=== PATIENT | female | born 1965 | race Caucasian/White ===

== ENCOUNTER 2018-03-04 02:46 | Emergency (ER) | payer OTHER ==
[~2018-03-04] VITALS: Ht 162.6 cm; Wt 105.7 kg
[~2018-03-04 02:46] MED LIST: DEPO-MEDRO40 MG/1 ML IJ; DICLOFENAC POTA50 MG PO; EC-NAPROSYN500 MG PO; FLECTOR1 EACH TD; LIDOCAINE IJ; TRAMADOL HCL-AP1 TAB PO; VOLTAREN-XR100 MG PO
[2018-03-04] MEDS ORDERED: BACTRIM DS TAB1 EACH PO (05:23)
[2018-03-04] MEDS ORDERED: PYRIDIUM DS200 MG PO (05:40)
== END 2018-03-04 06:15 | disposition home or self-care (01) ==
LOC: ER 02:46
DX: N30.80 Other cystitis without hematuria (principal)

== ENCOUNTER 2018-10-10 11:07 | Outpatient (CLI) | payer OTHER ==
[~2018-10-10 11:07] MED LIST changes: +BACTRIM DS TAB1 EACH PO; +PYRIDIUM DS200 MG PO; +XYLOCAINE IJ
== END 2018-10-10 11:11 | disposition home or self-care (01) ==
LOC: MAMO-SONO 11:07
DX: N60.29 Fibroadenosis of unspecified breast (principal); Z12.31 Encounter for screening mammogram for malignant neoplasm of breast

== ENCOUNTER 2019-02-23 14:20 | Outpatient (CLI) | payer OTHER | END 2019-02-23 16:12 | disposition home or self-care (01) | LOC: SONOGRAMA 14:20 | DX: M12.88 Other specific arthropathies, not elsewhere classified, other specified site (principal) ==

== ENCOUNTER 2019-07-04 08:18 | Emergency (ER) | payer OTHER ==
[~2019-07-04] VITALS: Ht 167.6 cm; Wt 101.6 kg
== END 2019-07-04 17:27 | disposition home or self-care (01) ==
LOC: ER 08:18
DX: J45.998 Other asthma (principal); B96.0 Mycoplasma pneumoniae [M. pneumoniae] as the cause of diseases classified elsewhere

== ENCOUNTER 2019-07-18 07:26 | Outpatient (CLI) | payer OTHER | END 2019-07-18 08:43 | disposition home or self-care (01) | LOC: RAD 07:26 | DX: M25.562 Pain in left knee (principal); M25.561 Pain in right knee ==

== ENCOUNTER 2019-11-13 11:50 | Outpatient (CLI) | payer OTHER | END 2019-11-13 11:54 | disposition home or self-care (01) | LOC: MAMO-SONO 11:50 | PROVIDERS: ATTEND Internal Medicine Cardiovascular Disease | DX: Z12.31 Encounter for screening mammogram for malignant neoplasm of breast (principal); Z87.898 Personal history of other specified conditions; N63.11 Unspecified lump in the right breast, upper outer quadrant ==

== ENCOUNTER 2021-04-08 08:47 | Outpatient (CLI) | payer OTHER | END 2021-04-08 08:51 | disposition home or self-care (01) | LOC: TOM 08:47 | PROVIDERS: ATTEND Internal Medicine Gastroenterology | DX: K63.5 Polyp of colon (principal); K56.51 Intestinal adhesions [bands], with partial obstruction; R19.4 Change in bowel habit ==

== ENCOUNTER 2022-10-07 10:55 | Outpatient (CLI) | payer OTHER ==
[~2022-10-07 10:55] MED LIST changes: +CELEBREX200MG PO; +HYMOVIS24 MG/3 ML IU; +METAXALONE800 MG PO; +NORFLEX100MG PO
== END 2022-10-07 11:15 | disposition home or self-care (01) ==
LOC: MRI 10:55
PROVIDERS: ATTEND Internal Medicine Cardiovascular Disease
DX: M46.48 Discitis, unspecified, sacral and sacrococcygeal region (principal)
CPT/HCPCS: 72148

== ENCOUNTER 2023-07-02 13:43 | Outpatient (CLI) | payer OTHER | END 2023-07-02 13:54 | disposition home or self-care (01) | LOC: TOM 13:43 | PROVIDERS: ATTEND Specialist | DX: N20.0 Calculus of kidney (principal); N30.00 Acute cystitis without hematuria ==

== ENCOUNTER 2025-01-10 12:01 | Outpatient (CLI) | payer OTHER | END 2025-01-10 12:05 | disposition home or self-care (01) | LOC: MAMO-SONO 12:01 | PROVIDERS: ATTEND Internal Medicine Cardiovascular Disease | DX: N60.11 Diffuse cystic mastopathy of right breast (principal); N60.12 Diffuse cystic mastopathy of left breast; Z12.31 Encounter for screening mammogram for malignant neoplasm of breast ==

== ENCOUNTER 2025-05-02 09:05 | Outpatient (CLI) | payer OTHER | END 2025-05-02 09:07 | disposition home or self-care (01) | LOC: MRI 09:05 | PROVIDERS: ATTEND Physical Medicine & Rehabilitation | DX: S83.206A Unspecified tear of unspecified meniscus, current injury, right knee, initial encounter (principal); X58.XXXA Exposure to other specified factors, initial encounter; Y93.9 Activity, unspecified; Y92.9 Unspecified place or not applicable; Y99.9 Unspecified external cause status | CPT/HCPCS: 73721 ==